=== PATIENT | female | born 1940 | race Caucasian/White ===

== ENCOUNTER 2019-10-15 09:19 | Emergency (ER) | payer MEDICARE, OTHER ==
[~2019-10-15] VITALS: Wt 64.4 kg
[2019-10-15 09:24] VITALS: BP 115/48
[2019-10-15] MEDS ORDERED: ULTRAM50 MG PO (11:35)
== END 2019-10-15 11:28 | disposition home or self-care (01) ==
LOC: ED 09:19
DX: S89.92XA Unspecified injury of left lower leg, initial encounter (principal); F17.200 Nicotine dependence, unspecified, uncomplicated; W01.0XXA Fall on same level from slipping, tripping and stumbling without subsequent striking against object, initial encounter; Y93.89 Activity, other specified; Y92.89 Other specified places as the place of occurrence of the external cause; Y99.8 Other external cause status